=== PATIENT | female | born 1970 | race Hispanic/Latino ===

== ENCOUNTER 2020-02-11 17:14 | Emergency (ER) | payer OTHER ==
[~2020-02-11] VITALS: Ht 152.4 cm; Wt 56.7 kg
[2020-02-11] MEDS ORDERED: VICTOZA 2-0.6 MG/0.1 SUB-Q (17:36)
[2020-02-11] MEDS ORDERED: LOSARTAN POTAS100 MG PO (17:41)
[2020-02-11] MEDS ORDERED: ONDANSETRON ODT8 MG PO (19:17)
[2020-02-11] MEDS ORDERED: NORCO 5-325 TA1 EACH PO (19:17)
== END 2020-02-11 19:25 | disposition home or self-care (01) ==
LOC: ED 17:14
DX: S20.222A Contusion of left back wall of thorax, initial encounter (principal); S40.012A Contusion of left shoulder, initial encounter; E11.9 Type 2 diabetes mellitus without complications; I10 Essential (primary) hypertension; Z79.899 Other long term (current) drug therapy; X58.XXXA Exposure to other specified factors, initial encounter
CPT/HCPCS: 71045; 73010; 99283-25